=== PATIENT | female | born 1960 | race Caucasian/White ===

== ENCOUNTER 2021-03-26 18:13 | Emergency (ER) | payer OTHER ==
[2021-03-26] MEDS ORDERED: KETOROLAC 60 MG/2 ML VIAL IM STA (19:18)
--- NOTE | 2021-03-26 19:19 | ED Physician Documentation ---
PD HPI Fall - Stated complaint Stated Complaint: FALL, KNEE & BACK PX - Chief complaint Chief Complaint: General - History obtained from History obtained from: Patient - History of Present Illness Mechanism of injury: Slipped Fall distance: Standing position Where injury occurred: Other (restaurant) Timing - onset: Today Injury(ies) location: Left Lower Extremity Quality of pain: Pain Associated symptoms: No: LOC, AMS, Amnesia, Seizures, Ear drainage, Nasal drainage, Weakness, Dyspnea Symptoms improve with: Rest Worsens with: Movement, Palpation Contributing factors: No: Anticoagulated Similar symptoms before: Has not had sx before Recently seen: Not recently seen - Additional information Additional information: 60-year-old female was at a restaurant in [place], at [facility], when she slipped on a wet floor and fell onto her left side. She feels that she may have twisted her left knee with this fall and she has pain in her hip knee and ankle. She states that she was able to get up and ambulate but with significant pain especially to her knee. She denies any loss of consciousness she denies getting the wind knocked out of her she denies any chest pain or neck pain. 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, Other - Present Medications Home Medications: Ambulatory Orders Medication Instructions Recorded Confirmed HYDROcod/ACETAM 5/325 [Felch 5/325] 1 - 2 tablet PO Q6H PRN #14 tablet 03/26/21 Venlafaxine ER [Effexor ER] 1 tab PO DAILY 03/26/21 03/26/21 - Allergies Allergies/Adverse Reactions: Allergies Allergy/AdvReac Type Severity Reaction Status Date / Time No Known Drug Allergies Allergy Verified 03/26/21 18:24 - Social History Does the pt smoke?: No Smoking Status: Former smoker Does the pt drink ETOH?: No Does the pt have substance abuse?: No Substance Use and Type: CBD oil / Products PD ED PE NORMAL - Vitals Vital signs reviewed: Yes (normal ) - General General: Alert and oriented X 3, No acute distress, Well developed/nourished - HEENT HEENT: Atraumatic, PERRL, EOMI - Neck Neck: Supple, no meningeal sign, No bony TTP - Cardiac Cardiac: RRR, No murmur - Respiratory Respiratory: No respiratory distress, Clear bilaterally, Other (no chest wall tenderness ) - Abdomen Abdomen: Soft, Non tender - Back Back: No CVA TTP, No spinal TTP - Derm Derm: Normal color, Warm and dry, No rash - Extremities Extremities: No deformity, No edema, Other (Examination of the of the left knee no palpable effusion pain to the lateral joint line to direct palpation and with valgus and varus forces. There is no significant opening. 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 Dege nerative joint disease is present, with joint space narrowing at the medial compartment and lateral facet of the patellofemoral joint but without fracture or joint effusion, or loose body.), EMP read indepedently, See rad report anklle Radiology: Prelim report reviewed (Impression: no trauma found. No significant soft tissue swelling.), EMP read indepedently, See rad report PD MEDICAL DECISION MAKING - ED course Complexity details: reviewed results, re-evaluated patient, considered differential, d/w patient, d/w family ED course: 60-year-old female with a fall onto her left side is contused her hip knee and ankle she appears to have sprained the knee and this appears to be the worst of her injuries. There is no palpable effusion the hip runs a full range of motion without pain and there is no pain to direct palpation of the trochanter. The ankle is without evidence of fracture on x-ray examination as is the knee. Her knee is placed into a knee immobilizer. She has improvement in her ability to ambulate with this. Departure - Departure Disposition: 01 Home, Self Care Clinical Impression: Sprain of left knee Qualifiers: Encounter type: initial encounter Involved ligament of knee: lateral collateral ligament Qualified Code(s): S83.422A - Sprain of lateral collateral ligament of left knee, initial encounter Left ankle sprain Qualifiers: Encounter type: initial encounter Involved ligament of ankle: anterior talofibular ligament Qualified Code(s): S93.492A - Sprain of other ligament of left ankle, initial encounter Condition: Stable Instructions: ED Sprain Knee, ED Sprain Ankle Follow-Up: Yoseph Akins MD [Primary Care Provider] - Prescriptions: HYDROcod/ACETAM 5/325 [Felch 5/325] 1 - 2 tablet PO Q6H PRN #14 tablet PRN Reason: Pain Discharge Date/Time: 03/26/21 20:50
[2021-03-26] MEDS ORDERED: HYDROcod/ACET 5/325 Prepack 4 PO STA (20:22)
--- NOTE | 2021-03-26 20:37 | XRAY Report ---
PROCEDURE: Ankle 3 View LT INDICATIONS: fall lateral pain TECHNIQUE: views of the ankle were acquired. COMPARISON: None FINDINGS: Bones: No fractures or dislocations. Ankle mortise is normally aligned. No suspicious bony lesions . Soft tissues: No tibiotalar joint effusion. Achilles tendon appears normal. IMPRESSION: No trauma found. No significant soft tissue swelling. Reviewed by: Toby Santillan MD on 03/26/2021 8:36 PM PDT Approved by: Toby Santillan MD on 03/26/2021 8:36 PM PDT Station ID: [id number]
--- NOTE | 2021-03-26 20:39 | XRAY Report ---
PROCEDURE: Knee 4 View LT INDICATIONS: fall lateral pain TECHNIQUE: 4 views of the left knee(s) were acquired. COMPARISON: None. FINDINGS: Bones: No fractures or dislocations but there is degenerative joint space narrowing, moderate at the medial compartment and mild at the lateral compartment. A slight degree of such narrowing is present at the lateral facet of the patellofemoral joint.. No suspicious bony lesions. Soft tissues: No joint effusion. No suspicious soft tissue calcifications. IMPRESSION: No acute trauma found. Degenerative joint disease is present, with joint space narrowing at the medial compartment and lateral facet of the patellofemoral joint but without fracture or join t effusion, or loose body. Reviewed by: Toby Santillan MD on 03/26/2021 8:38 PM PDT Approved by: Toby Santillan MD on 03/26/2021 8:38 PM PDT Station ID: [id number]
[2021-03-26 20:52] VITALS: BP 119/64
== END 2021-03-26 20:50 | disposition home or self-care (01) ==
LOC: ED 18:13
DX: S83.422A Sprain of lateral collateral ligament of left knee, initial encounter (principal); S93.492A Sprain of other ligament of left ankle, initial encounter; W01.0XXA Fall on same level from slipping, tripping and stumbling without subsequent striking against object, initial encounter; Y93.89 Activity, other specified; Y92.511 Restaurant or cafe as the place of occurrence of the external cause; Z87.891 Personal history of nicotine dependence
CPT/HCPCS: 96372; 99283; 99284

== ENCOUNTER 2021-04-25 07:40 | Outpatient (CLI) | payer OTHER ==
--- NOTE | 2021-04-26 08:57 | XRAY Report ---
PROCEDURE: Knee 4 View LT INDICATIONS: L KNEE PX TECHNIQUE: 4 views of the left knee(s) were acquired. COMPARISON: None. FINDINGS: Bones: No fractures or dislocations. Moderate medial femoral tibial compartment osteoarthritis is se en in left knee. No suspicious bony lesions. Soft tissues: Small to moderate joint effusion is noted. No suspicious soft tissue calcifications. IMPRESSION: Moderate medial femoral tibial compartment osteoarthritis in left knee. No fracture or d islocation. Small to moderate suprapatellar joint effusion. Reviewed by: Jose Gomez MD on 04/26/2021 8:56 AM PDT Approved by: Jose Gomez MD on 04/26/2021 8:56 AM PDT Station ID: [id number]
== END 2021-04-25 23:59 | disposition home or self-care (01) ==
LOC: DI.N 07:40
PROVIDERS: ATTEND Orthopaedic Surgery
DX: M17.12 Unilateral primary osteoarthritis, left knee (principal); M25.462 Effusion, left knee

== ENCOUNTER 2021-10-06 07:54 | Outpatient (CLI) | payer OTHER ==
[2021-10-06 08:19] LABS: BASOPHILS % (AUTO) 0.9 %; EOSINOPHILS # (AUTO) 0.1 10^3/uL (0.0-0.7); EOSINOPHILS % (AUTO) 1.6 %; HCT - HEMATOCRIT 41.6 % (37.0-47.0); HGB - HEMOGLOBIN 13.7 g/dL (12.0-16.0); LYMPHOCYTES % (AUTO) 23.9 %; MEAN CORPUSCULAR HEMOGLOBIN 30.7 pg (27.0-31.0); MEAN CORPUSCULAR HGB CONC 32.9 g/dL (32.0-36.0); MEAN CORPUSCULAR VOLUME 93.3 fL (81.0-99.0); MEAN PLATELET VOLUME 9.1 fL (7.9-10.8); MONOCYTES # (AUTO) 0.4 10^3/uL (0.0-1.0); MONOCYTES % (AUTO) 9.6 %; NEUTROPHILS # (AUTO) 2.7 10^3/uL (1.5-6.6); NEUTROPHILS % (AUTO) 63.8 %; PLT - PLATELET COUNT 337 10^3/uL (130-450); RED BLOOD COUNT 4.46 10^6/uL (4.20-5.40); RED CELL DISTRIBUTION WIDTH 12.6 % (12.0-15.0); WHITE BLOOD COUNT 4.3 x10^3/uL (4.8-10.8)
[2021-10-06 08:38] LABS: ALBUMIN 4.2 g/dL (3.2-5.5); ALBUMIN/GLOBULIN RATIO 1.2 (1.0-2.2); ALKALINE PHOSPHATASE 66 IU/L (42-121); ALT ALANINE AMINOTRANSFERASE 14 IU/L (10-60); AST ASPARTATE AMINOTRANSFERASE 16 IU/L (10-42); BILIRUBIN,TOTAL 0.9 mg/dL (0.2-1.0); BUN - BLOOD UREA NITROGEN 15 mg/dL (6-20); CALCIUM 9.4 mg/dL (8.5-10.3); CARBON DIOXIDE - CO2 28 mmol/L (21-32); CHLORIDE 100 mmol/L (101-111); CHOL/HDL RATIO 4.1 (<4.4); CHOLESTEROL 223 mg/dL; CREATININE 0.9 mg/dL (0.4-1.0); GFR - MDRD 64 (>89); GLUCOSE 110 mg/dL (70-100); HDL CHOLESTEROL 54 mg/dL; LDL CHOLESTEROL,CALCULATED 150 mg/dL; LDL/HDL RATIO 2.8 (<4.4); POTASSIUM 4.4 mmol/L (3.5-5.0); SODIUM 135 mmol/L (135-145); TOTAL PROTEIN 7.8 g/dL (6.7-8.2); TRIGLYCERIDES 95 mg/dL; VLDL CHOLESTEROL 19 mg/dL
== END 2021-10-06 07:55 | disposition home or self-care (01) ==
LOC: LAB 07:54
PROVIDERS: ATTEND Internal Medicine
DX: Z79.899 Other long term (current) drug therapy (principal)
CPT/HCPCS: 36415; 80053; 80061; 83721; 85025

== ENCOUNTER 2021-11-08 12:34 | Outpatient (CLI) | payer OTHER ==
--- NOTE | 2021-11-15 07:27 | Mammography Report ---
BILATERAL DIGITAL SCREENING MAMMOGRAM 3D/2D: 11/08/2021 CLINICAL: Routine screening. No prior exams were available for comparison. There are scattered fibroglandular elements in both br easts. No significant masses, calcifications, or other findings are seen in either breast. IMPRESSION: NEGATIVE There is no mammographic evidence of malignancy. A 1 year screening mammogram is recommended. This exam was interpreted at Station ID: [id number]. NOTE: For mammograms, a report in lay terms will be sent to the patient. Approximately 15% of breast malignancies will not be visualized mammographically. In the management of a palpable breast mass, a negative mammogram must not discourage biopsy of a clinically suspicious lesion. Electronically Signed By: Valerio patel/edna:11/14/2021 09:52:15 ACR BI-RADS Category 1: Negative 3341F PARENCHYMAL PATTERN: (A) - The breast(s) demonstrate(s) scattered fibroglandular densities. BI-RADS CATEGORY: (1) - 1 RECOMMENDATION: (ANNUAL) - Recommend routine annual screening mammography. [id number] 1 year screening LATERALITY: (B)
== END 2021-11-08 12:35 | disposition home or self-care (01) ==
LOC: DI.N 12:34
PROVIDERS: ATTEND Registered Nurse
DX: Z12.31 Encounter for screening mammogram for malignant neoplasm of breast (principal)

== ENCOUNTER 2022-03-28 08:00 | Outpatient (CLI) | payer OTHER | END 2022-03-28 23:59 | disposition home or self-care (01) | LOC: LAB.S 08:00 | PROVIDERS: ATTEND Emergency Medicine | DX: J02.9 Acute pharyngitis, unspecified (principal); Z20.822 Contact with and (suspected) exposure to COVID-19 | CPT/HCPCS: 87070 ==

== ENCOUNTER 2022-06-20 08:00 | Outpatient (CLI) | payer OTHER | END 2022-06-20 23:59 | disposition home or self-care (01) | LOC: LAB 08:00 | PROVIDERS: ATTEND Physician Assistant Medical | DX: Z87.440 Personal history of urinary (tract) infections (principal) | CPT/HCPCS: 87086; 87181 ==

== ENCOUNTER 2022-11-12 07:11 | Outpatient (CLI) | payer BC ==
[2022-11-12 07:40] LABS: BASOPHILS % (AUTO) 0.4 %; EOSINOPHILS % (AUTO) 0.8 %; HGB - HEMOGLOBIN 14.3 g/dL (12.0-16.0); LYMPHOCYTES # (AUTO) 1.4 10^3/uL (1.5-3.5); LYMPHOCYTES % (AUTO) 27.2 %; MEAN CORPUSCULAR HEMOGLOBIN 29.1 pg (27.0-31.0); MEAN CORPUSCULAR HGB CONC 31.8 g/dL (32.0-36.0); MEAN CORPUSCULAR VOLUME 91.5 fL (81.0-99.0); MEAN PLATELET VOLUME 9.7 fL (7.9-10.8); MONOCYTES # (AUTO) 0.4 10^3/uL (0.0-1.0); MONOCYTES % (AUTO) 7.7 %; NEUTROPHILS # (AUTO) 3.2 10^3/uL (1.5-6.6); NEUTROPHILS % (AUTO) 63.7 %; PLT - PLATELET COUNT 339 10^3/uL (130-450); RED BLOOD COUNT 4.92 10^6/uL (4.20-5.40); RED CELL DISTRIBUTION WIDTH 13.6 % (12.0-15.0); WHITE BLOOD COUNT 5.1 x10^3/uL (4.8-10.8)
[2022-11-12 08:04] LABS: ALBUMIN 4.3 g/dL (3.2-5.5); ALBUMIN/GLOBULIN RATIO 1.3 (1.0-2.2); ALKALINE PHOSPHATASE 64 IU/L (42-121); ALT ALANINE AMINOTRANSFERASE 11 IU/L (10-60); AST ASPARTATE AMINOTRANSFERASE 15 IU/L (10-42); BILIRUBIN,TOTAL 0.4 mg/dL (0.2-1.0); BUN - BLOOD UREA NITROGEN 19 mg/dL (6-20); CALCIUM 9.7 mg/dL (8.5-10.3); CARBON DIOXIDE - CO2 29 mmol/L (21-32); CHLORIDE 103 mmol/L (101-111); CHOL/HDL RATIO 3.6 (<4.4); CHOLESTEROL 195 mg/dL; CREATININE 0.8 mg/dL (0.4-1.0); GFR - MDRD 73 (>89); GLUCOSE 118 mg/dL (70-100); HDL CHOLESTEROL 54 mg/dL; LDL CHOLESTEROL,CALCULATED 124 mg/dL; LDL/HDL RATIO 2.3 (<4.4); POTASSIUM 4.6 mmol/L (3.5-5.0); SODIUM 140 mmol/L (135-145); TOTAL PROTEIN 7.7 g/dL (6.7-8.2); TRIGLYCERIDES 86 mg/dL; VLDL CHOLESTEROL 17 mg/dL
[2022-11-12 08:16] LABS: THYROID STIMULATING HORMONE 2.7 uIU/mL (0.34-5.60)
== END 2022-11-12 07:12 | disposition home or self-care (01) ==
LOC: LAB 07:11
PROVIDERS: ATTEND Registered Nurse
DX: Z79.899 Other long term (current) drug therapy (principal); Z13.220 Encounter for screening for lipoid disorders; Z13.29 Encounter for screening for other suspected endocrine disorder
CPT/HCPCS: 36415; 80053; 80061; 83721; 84443; 85025

== ENCOUNTER 2022-11-15 09:45 | Outpatient (CLI) | payer BC ==
--- NOTE | 2022-11-15 12:27 | DEXA Report ---
PROCEDURE: Dexa Spine and/or Hip INDICATIONS: POST MENOPAUSAL TECHNIQUE: Dual energy x-ray absorptiometry (DXA) was performed on a Stop Being Watched System. Regions measur ed are the AP Spine, femoral neck, and if needed forearm. COMPARISON: None. FINDINGS: Lumbar Spine: Bone Mineral Density 1.105 g/cm/cm,T score -0.6, normal Left Femoral Neck: Bone Mineral Density 0.692 g/cm/cm, T score -2.5, osteoporosis Left Hip: Bone Mineral Density 0.805 g/cm/cm,T score -1.6, mild to moderate osteopenia (T score greater or equal to -1.0: NORMAL) (T score from -1.1 to -2.4: OSTEOPENIA) (T score less than or equal to -2.5 to: OSTEOPOROSIS) Impression: Osteoporosis within the left femoral neck as well as osteopenia within the left hip. Patients with diagnosis of osteoporosis or osteopenia should have regular bone mineral density assess ment. For those eligible for Medicare, routine testing is allowed once every 2 years. Testing frequ ency can be increased for patients who have rapidly progressing disease or for those who are receivin g medical therapy to restore bone mass. Reviewed by: Concetta Fofana MD on 11/15/2022 12:26 PM PST Approved by: Concetta Fofana MD on 11/15/2022 12:26 PM PST Station ID: [id number]
== END 2022-11-15 09:46 | disposition home or self-care (01) ==
LOC: DI 09:45
PROVIDERS: ATTEND Registered Nurse
DX: Z78.0 Asymptomatic menopausal state (principal); M81.0 Age-related osteoporosis without current pathological fracture

== ENCOUNTER 2022-11-15 09:46 | Outpatient (CLI) | payer BC ==
--- NOTE | 2022-11-16 12:23 | Mammography Report ---
BILATERAL DIGITAL SCREENING MAMMOGRAM 3D/2D: 11/15/2022 CLINICAL: Routine screening. Comparison is made to exam dated: 11/08/2021 mammogram - [facility]. Both breasts are almost entirely fatty (category a/<25% glandular tissue). No significant masses, calcifications, or other findings are seen in either breast. There has been no significant interval change. IMPRESSION: NEGATIVE There is no mammographic evidence of malignancy. A 1 year screening mammogram is recommended. Based on the Tyrer Cuzick model (a risk assessment model) the patients lifetime risk is 6.1% and her 10 year risk is 2.6%. According to the ACR, ACS, and NCCN guidelines, an annual breast MRI exam inna g with mammogram is recommended if the patients lifetime risk is 20% or greater. This exam was interpreted at Station ID: [id number]. NOTE: For mammograms, a report in lay terms will be sent to the patient. Approximately 15% of breast malignancies will not be visualized mammographically. In the management of a palpable breast mass, a negative mammogram must not discourage biopsy of a clinically suspicious lesion. Electronically Signed By: Aaron Palma M.D., jr/edna:11/15/2022 14:16:45 ACR BI-RADS Category 1: Negative 3341F PARENCHYMAL PATTERN: (F) - The breast(s) demonstrate(s) diffuse fatty replacement. BI-RADS CATEGORY: (1) - 1 RECOMMENDATION: (ANNUAL) - Recommend routine annual screening mammography. [id number] 1 year screening LATERALITY: (B)
== END 2022-11-15 09:47 | disposition home or self-care (01) ==
LOC: DI 09:46
PROVIDERS: ATTEND Registered Nurse
DX: Z12.31 Encounter for screening mammogram for malignant neoplasm of breast (principal)

== ENCOUNTER 2023-03-25 08:30 | Outpatient (CLI) | payer BC ==
--- NOTE | 2023-03-25 16:11 | XRAY Report ---
PROCEDURE: Wrist 4 View LT INDICATIONS: INJURY OF THE LEFT WRIST, HAND AND FINGER TECHNIQUE: 4 views of the wrist were acquired. COMPARISON: None. FINDINGS: Bones: No fractures or dislocations. No suspicious bony lesions. Dedicated scaphoid view demonstr ates no visualized fracture. Soft tissues: No suspicious soft tissue calcifications or masses. IMPRESSION: No visualized acute fracture or dislocation. However, occult injury cannot be excluded. Recommend lion rt interval imaging follow-up in 7-10 days as clinically indicated for additional evaluation. Reviewed by: Concetta Fofana MD on 03/25/2023 4:10 PM PDT Approved by: Concetta Fofana MD on 03/25/2023 4:10 PM PDT Station ID: [id number]
== END 2023-03-25 08:45 | disposition home or self-care (01) ==
LOC: DI.N 08:30
PROVIDERS: ATTEND Nurse Practitioner
DX: S69.92XA Unspecified injury of left wrist, hand and finger(s), initial encounter (principal)

== ENCOUNTER 2023-09-18 12:06 | Outpatient (CLI) | payer BC ==
--- NOTE | 2023-09-18 16:02 | XRAY Report ---
PROCEDURE: Foot 3 View LT INDICATIONS: CONGENITAL PES CAVUS, LEFT FOOT TECHNIQUE: 3 views of the foot were acquired. COMPARISON: None. FINDINGS: Bones: No fractures or dislocations. No suspicious bony lesions. Calcaneal pitch measures 31 degr ees, which is at the upper limits of normal. Soft tissues: No suspicious soft tissue calcifications or masses. IMPRESSION: Calcaneal pitch at the upper limits of normal. Reviewed by: Concetta Fofana MD on 09/18/2023 4:01 PM [facility] Approved by: Concetta Fofana MD on 09/18/2023 4:01 PM [facility] Station ID: [id number]
== END 2023-09-18 12:07 | disposition home or self-care (01) ==
LOC: DI 12:06
DX: Q66.72 Congenital pes cavus, left foot (principal)

== ENCOUNTER 2023-11-27 11:32 | Outpatient (CLI) | payer BC ==
--- NOTE | 2023-11-27 12:56 | XRAY Report ---
PROCEDURE: Foot 3+V LT (Weight Bearing) INDICATIONS: ENCOUNTER FOR OTHER ORTHOPEDIC AFTERCARE TECHNIQUE: 3 weightbearing views of the left foot COMPARISON: X-ray left foot 09/18/2023 FINDINGS: Bones: No fractures or dislocations. No suspicious bony lesions. Calcaneal pitch measures 32 degrees, which is at the upper limits of normal. Plantar calcaneal spurring. Soft tissues: No suspicious soft tissue calcifications or masses. IMPRESSION: No acute osseous abnormalities. Redemonstration of calcaneal pitch at the upper limits of normal. Reviewed by: Arnie Verdugo MD on 11/27/2023 12:54 PM PST Approved by: Arnie Verdugo MD on 11/27/2023 12:54 PM PST Station ID: [id number]
== END 2023-11-27 11:33 | disposition home or self-care (01) ==
LOC: DI 11:32
PROVIDERS: ATTEND Podiatrist Foot & Ankle Surgery
DX: Z47.89 Encounter for other orthopedic aftercare (principal)

== ENCOUNTER 2024-01-07 07:37 | Outpatient (CLI) | payer BC ==
[2024-01-07 07:56] LABS: BASOPHILS % (AUTO) 0.9 %; EOSINOPHILS # (AUTO) 0.1 10^3/uL (0.0-0.7); EOSINOPHILS % (AUTO) 1.5 %; HCT - HEMATOCRIT 43.7 % (37.0-47.0); HGB - HEMOGLOBIN 13.5 g/dL (12.0-16.0); LYMPHOCYTES # (AUTO) 1.5 10^3/uL (1.5-3.5); LYMPHOCYTES % (AUTO) 32.5 %; MEAN CORPUSCULAR HEMOGLOBIN 29.6 pg (27.0-31.0); MEAN CORPUSCULAR HGB CONC 30.9 g/dL (32.0-36.0); MEAN CORPUSCULAR VOLUME 95.8 fL (81.0-99.0); MEAN PLATELET VOLUME 9.4 fL (7.9-10.8); MONOCYTES # (AUTO) 0.4 10^3/uL (0.0-1.0); NEUTROPHILS # (AUTO) 2.6 10^3/uL (1.5-6.6); NEUTROPHILS % (AUTO) 55.9 %; PLT - PLATELET COUNT 344 10^3/uL (130-450); RED BLOOD COUNT 4.56 10^6/uL (4.20-5.40); RED CELL DISTRIBUTION WIDTH 12.6 % (12.0-15.0); WHITE BLOOD COUNT 4.7 x10^3/uL (4.8-10.8)
[2024-01-07 08:16] LABS: ALBUMIN 4.2 g/dL (3.2-5.5); ALBUMIN/GLOBULIN RATIO 1.5 (1.0-2.2); ALKALINE PHOSPHATASE 65 IU/L (42-121); ALT ALANINE AMINOTRANSFERASE 9 IU/L (10-60); AST ASPARTATE AMINOTRANSFERASE 13 IU/L (10-42); BILIRUBIN,TOTAL 0.4 mg/dL (0.2-1.0); BUN - BLOOD UREA NITROGEN 18 mg/dL (6-20); CALCIUM 9.8 mg/dL (8.5-10.3); CARBON DIOXIDE - CO2 31 mmol/L (21-32); CHLORIDE 104 mmol/L (101-111); CHOL/HDL RATIO 3.7 (<4.4); CHOLESTEROL 192 mg/dL; CREATININE 0.9 mg/dL (0.6-1.3); GFR - MDRD 63 (>89); GLUCOSE 101 mg/dL (74-104); HDL CHOLESTEROL 52 mg/dL; LDL CHOLESTEROL,CALCULATED 119 mg/dL; LDL/HDL RATIO 2.3 (<4.4); POTASSIUM 4.4 mmol/L (3.5-4.5); SODIUM 138 mmol/L (135-145); TRIGLYCERIDES 107 mg/dL (48-352); VLDL CHOLESTEROL 21 mg/dL
[2024-01-07 08:23] LABS: THYROID STIMULATING HORMONE 1.91 uIU/mL (0.34-5.60)
== END 2024-01-07 07:38 | disposition home or self-care (01) ==
LOC: LAB 07:37
PROVIDERS: ATTEND Registered Nurse
DX: Z13.228 Encounter for screening for other metabolic disorders (principal); Z13.220 Encounter for screening for lipoid disorders; Z13.29 Encounter for screening for other suspected endocrine disorder; Z13.0 Encounter for screening for diseases of the blood and blood-forming organs and certain disorders involving the immune mechanism
CPT/HCPCS: 36415; 80053; 80061; 83721; 84443; 85025